=== PATIENT | male | born 1990 | race Caucasian/White ===

== ENCOUNTER 2019-02-04 08:23 | Day surgery (SDC) | payer OTHER ==
[2019-02-04] MEDS: SOD CHLORIDE 0.9% 1,000 ML IV (06:00)
[~2019-02-04 08:23] MED LIST: CEFAZOLIN 2 GM/50 ML (PMX) 50 ML IVPB
[2019-02-04] MEDS ORDERED: ROCURONIUM 50 MG INJ (09:53)
[2019-02-04] MEDS ORDERED: PROPOFOL 100 ML (09:53)
[2019-02-04] MEDS ORDERED: ONDANSETRON 4 MG INJ (09:54)
[2019-02-04] MEDS ORDERED: MIDAZOLAM 1 MG/ML 2 ML INJ (09:54)
[2019-02-04] MEDS ORDERED: DEXAMETHASONE 4 MG/ML 5 ML INJ (09:54)
[2019-02-04] MEDS ORDERED: FENTAnyl 50 MCG/ML VIAL (09:54)
[2019-02-04] MEDS ORDERED: HYDROmorphONE 1 MG/5 ML IV SYRINGE IV ×2 (10:30)
[2019-02-04] MEDS ORDERED: TRIMETHOBENZAMIDE 100 MG/ML VIAL IM (10:30)
[2019-02-04] MEDS ORDERED: MEPERIDINE 25 MG INJ IV (10:30)
[2019-02-04] MEDS ORDERED: LABETALOL HCL 20MG INJ IV (10:30)
[2019-02-04] MEDS ORDERED: MIDAZOLAM 1 MG/ML 2 ML INJ IV (10:30)
[2019-02-04] MEDS ORDERED: FENTAnyl 50 MCG/ML VIAL IV ×2 (10:30)
[2019-02-04] MEDS ORDERED: hydrALAzine 20 MG INJ IV (10:30)
[2019-02-04] MEDS ORDERED: ALBUTEROL 0.083% (NEB) 2.5 MG/3 ML AMP HHN (10:30)
[2019-02-04] MEDS ORDERED: EPHEDrine SULFATE 50 MG/5 ML SYG IV (10:30)
[2019-02-04] MEDS ORDERED: DIPHENHYDRAMINE 50 MG INJ IV (10:30)
[2019-02-04] MEDS ORDERED: IPRATROPIUM (NEB) 0.5 MG/2.5 ML AMP HHN (10:30)
[2019-02-04] MEDS ORDERED: OXYCODONE/ACETAMINOPHEN (5/325) TAB PO (10:30)
[2019-02-04] MEDS ORDERED: SUGAMMADEX SODIUM 200 MG/2 ML VIAL IV ×2 (10:34→11:31)
[2019-02-04] MEDS ORDERED: ROPIVACAINE 0.5 % 30 ML VIAL (10:43)
[2019-02-04] MEDS ORDERED: MEPERIDINE 25 MG INJ (11:53)
[2019-02-04] MEDS: FENTAnyl 50 MCG/ML VIAL IV ×3 (12:09→12:30)
[2019-02-04] MEDS: HYDROmorphONE 1 MG/5 ML IV SYRINGE IV (12:48)
[2019-02-04] MEDS: OXYCODONE/ACETAMINOPHEN (5/325) TAB PO (13:12)
[2019-02-04] MEDS: HYDROCODONE/APAP (5/325) TAB PO (13:47)
[2019-02-04] MEDS: ONDANSETRON 4 MG INJ IV (14:19)
== END 2019-02-04 14:25 | disposition home or self-care (01) ==
LOC: SDS 08:23
DX: K40.30 Unilateral inguinal hernia, with obstruction, without gangrene, not specified as recurrent (principal)
CPT/HCPCS: 49507; 88304